=== PATIENT | male | born 1980 | race Caucasian/White ===

== ENCOUNTER 2019-08-02 08:26 | Emergency (ER) | payer OTHER ==
[~2019-08-02] VITALS: Ht 172.7 cm; Wt 79.4 kg
[~2019-08-02 08:26] MED LIST: FLEXERIL PO; HYDROCODON-ACE1 EACH PO; IBUPROFEN 800800 MG PO; NOHOMEMEDICATIONS
[2019-08-02 12:15] VITALS: BP 153/98
[2019-08-02] MEDS ORDERED: CHLORDIAZEPOXID25 M1 PO (12:18)
== END 2019-08-02 12:20 | disposition home or self-care (01) ==
LOC: M.ERS 08:26
DX: S01.81XA Laceration without foreign body of other part of head, initial encounter (principal); F10.129 Alcohol abuse with intoxication, unspecified; F41.9 Anxiety disorder, unspecified; Z90.49 Acquired absence of other specified parts of digestive tract; Z88.0 Allergy status to penicillin; W01.190A Fall on same level from slipping, tripping and stumbling with subsequent striking against furniture, initial encounter; Y93.89 Activity, other specified; Y92.89 Other specified places as the place of occurrence of the external cause; Y99.8 Other external cause status; Y90.8 Blood alcohol level of 240 mg/100 ml or more